=== PATIENT | female | born 2000 | race Two or more races ===

== ENCOUNTER 2021-06-16 21:24 | Emergency (ER) | payer MEDICAID, OTHER ==
[~2021-06-16] VITALS: Ht 157.5 cm; Wt 63.5 kg
[2021-06-17 05:31] VITALS: BP 100/64
== END 2021-06-17 05:35 | disposition home or self-care (01) ==
LOC: ER 21:28
DX: S93.105A Unspecified dislocation of left toe(s), initial encounter (principal); X50.1XXA Overexertion from prolonged static or awkward postures, initial encounter; Y93.89 Activity, other specified; Y92.89 Other specified places as the place of occurrence of the external cause; Y99.8 Other external cause status
CPT/HCPCS: 73630